=== PATIENT | female | born 1930 | race Caucasian/White ===

== ENCOUNTER 2016-06-25 01:48 | Inpatient (IN) | payer MEDICARE, BC ==
[2016-06-25] MEDS ORDERED: MORPHINE SULFATE 4 MG/ML SYRINGE IVP PRN (02:02)
[2016-06-25] MEDS ORDERED: PANTOPRAZOLE 40 MG/10 ML VIAL IVP STA (02:02)
[2016-06-25] MEDS ORDERED: ONDANSETRON 4 MG/2 ML VIAL IVP PRN (02:02)
--- NOTE | 2016-06-25 02:04 | ED ---
General Adult HPI - General Chief complaint: Abdominal Pain Stated complaint: Hernia Time Seen by Provider: 06/25/16 01:56 Source: patient, RN notes reviewed, old records reviewed Mode of arrival: EMS Limitations: no limitations - History of Present Illness Initial comments: This is an 86-year-old female who accepted the transfer patient for evaluation of hernia. Hernia abdominal pain. Nausea and vomiting. Patient is a poor strain secondary to dementia. Patient's transfer for surgical evaluation of possible incarcerated hernia at this time patient is pleasant, with no complaints are acute distress - Related Data Home Medications Medication Instructions Recorded Confirmed Aspirin 81 mg PO DAILY 10/06/14 12/11/14 Citalopram Hydrobromide [CeleXA] 20 mg PO DAILY 10/06/14 12/11/14 Lisinopril-Hctz 10-12.5 mg 1 each PO DAILY 10/06/14 12/11/14 [Zestoretic 10-12.5] Pravastatin Sodium [Pravachol] 40 mg PO DAILY 10/06/14 12/11/14 Zoledronic Acid 5Mg/100Ml Pmx 1 dose IVPB DIRECTED 10/06/14 12/11/14 [Reclast] ALPRAZolam [Xanax] 0.25 mg PO BID PRN 10/12/14 12/11/14 Calcium Carbonate [Calcium] 1,200 mg PO DAILY 10/12/14 12/11/14 Cholecalciferol [Vitamin D3] 5,000 unit PO DAILY 10/12/14 12/11/14 Cranberry Conc/C/Bacill Coag 1 each PO DAILY 10/12/14 12/11/14 [Cranberry Tablet] L.acidoph/B.long/L.plant/B.lac 1 each PO DAILY 10/12/14 12/11/14 [Probiotic Acidophilus Beads] Multivitamins, Thera [Multivitamin] 1 each PO DAILY@1200 10/12/14 12/11/14 Naproxen Sodium [Aleve] 220 mg PO Q12HR PRN 10/12/14 12/11/14 Omeprazole [PriLOSEC] 20 mg PO AC-BRKFST 10/12/14 12/11/14 Albuterol Inhaler [Ventolin 1 - 2 puff INHALATION BID 10/23/14 12/11/14 Inhaler] Ferrous Sulfate [Iron (65 MG 45 mg PO DAILY 10/30/14 12/11/14 Elemental)] Cyanocobalamin [Vitamin B-12] 500 mcg PO DAILY@1200 12/11/14 12/11/14 Allergies Allergy/AdvReac Type Severity Reaction Status Date / Time No Known Allergies Allergy Verified 06/25/16 02:01 Review of Systems ROS Statement: Those systems with pertinent positive or pertinent negative responses have been documented in the HPI. ROS Other: All systems not noted in ROS Statement are negative. Past Medical History Past Medical History: COPD, Dementia, GERD/Reflux, Hyperlipidemia, Hypertension , Memory Impairment, Vascular Disorder Additional Past Medical History / Comment(s): "poor circulation lower legs", anemia, osteoporosis, seasonal allergies History of Any Multi-Drug Resistant Organisms: None Reported Past Surgical History: Hysterectomy Additional Past Surgical History / Comment(s): double aortic aneurysm repair, eye surgery- bilateral cataracts, and glaucoma surgery Past Anesthesia/Blood Transfusion Reactions: No Reported Reaction Past Psychological History: Depression Additional Psychological History / Comment(s): Alzheimers Smoking Status: Former smoker Past Alcohol Use History: None Reported Past Drug Use History: None Reported - Past Family History Mother Family Medical History: No Reported History General Exam Limitations: no limitations General appearance: alert, in no apparent distress Head exam: Present: atraumatic, normocephalic, normal inspection Eye exam: Present: normal appearance, PERRL, EOMI. Absent: scleral icterus, conjunctival injection, periorbital swelling ENT exam: Present: normal exam, mucous membranes moist Neck exam: Present: normal inspection. Absent: tenderness, meningismus, lymphadenopathy Respiratory exam: Present: normal lung sounds bilaterally. Absent: respiratory distress, wheezes, rales, rhonchi, stridor Cardiovascular Exam: Present: regular rate, normal rhythm, normal heart sounds. Absent: systolic murmur, diastolic murmur, rubs, gallop, clicks GI/Abdominal exam: Present: soft, normal bowel sounds. Absent: distended, tenderness, guarding, rebound, rigid Extremities exam: Present: normal inspection, full ROM, normal capillary refill. Absent: tenderness, pedal edema, joint swelling, calf tenderness Back exam: Present: normal inspection Neurological exam: Present: alert, oriented X3, CN II-XII intact Psychiatric exam: Present: normal affect, normal mood Skin exam: Present: warm, dry, intact, normal color. Absent: rash Course Vital Signs 06/25/16 01:51 Temperature 97.1 F L Pulse Rate 66 Respiratory 16 Rate Blood Pressure 182/93 O2 Sat by Pulse 96 Oximetry - Reevaluation(s) Reevaluation #1: 06/25/16 02:03 Unable to reduce hernia Reevaluation #2: 06/25/16 02:03 General surgery on-call, Dr. Antonia odonnell Medical Decision Making - Medical Decision Making 86 female the ER for evaluation. This patient possessed yesterday for evaluation of hernia, patient does have incarcerated hernia, [place] for surgical evaluation and treatment - Radiology Data Radiology results: report reviewed (CT report reviewed, positive hernia) Disposition Clinical Impression: Abdominal pain, Incarcerated hernia Disposition: ADMITTED IP TO THIS [facility] Condition: Fair Referrals: Nonstaff,Physician [Primary Care Provider] - 1-2 days
[2016-06-25] MEDS ORDERED: LABETALOL SYRINGE 5 MG/ML IVP STA (03:06)
[2016-06-25] MEDS ORDERED: SODIUM CHLORIDE 0.9% 1,000 ML IV SCH (03:30)
[2016-06-25 03:58] VITALS: BMI 25.9
--- NOTE | 2016-06-25 08:58 | P.GSHP ---
History of Present Illness H&P Date: 06/25/16 Chief Complaint: Hernia The patient is an 86-year-old female that's had a hernia for sometime. This 3 or 4 days it's been swollen and somewhat sore. Denies any previous repair. Denies nausea or vomiting. It is not bothering her much today. - Review of Systems All systems: negative (Some dementia) Past Medical History Past Medical History: COPD, Dementia, GERD/Reflux, Hyperlipidemia, Hypertension , Memory Impairment, Vascular Disorder Additional Past Medical History / Comment(s): "poor circulation lower legs", anemia, osteoporosis, seasonal allergies History of Any Multi-Drug Resistant Organisms: None Reported Past Surgical History: Hysterectomy Additional Past Surgical History / Comment(s): double aortic aneurysm repair, eye surgery- bilateral cataracts, and glaucoma surgery Past Anesthesia/Blood Transfusion Reactions: No Reported Reaction Past Psychological History: Depression Additional Psychological History / Comment(s): Alzheimers Smoking Status: Former smoker Past Alcohol Use History: None Reported Past Drug Use History: None Reported - Past Family History Mother Family Medical History: No Reported History Medications and Allergies Home Medications Medication Instructions Recorded Confirmed Type Citalopram Hydrobromide [CeleXA] 20 mg PO DAILY 06/25/16 06/25/16 History Cyanocobalamin (Vitamin B-12) 2,000 mcg PO DAILY 06/25/16 06/25/16 History [Vitamin B12] Ferrous Sulfate [Feosol] 325 mg PO DAILY 06/25/16 06/25/16 History Lisinopril-Hctz 20-25 mg 1 tab PO DAILY 06/25/16 06/25/16 History [Zestoretic 20-25] Loratadine [Claritin] 10 mg PO DAILY 06/25/16 06/25/16 History Multivitamins, Thera [Multivitamin] 1 tab PO DAILY 06/25/16 06/25/16 History [place]-3 Fatty Acids/Fish Oil [Fish 1 cap PO DAILY 06/25/16 06/25/16 History Oil 1,000 mg Softgel] Omeprazole [PriLOSEC] 40 mg PO DAILY 06/25/16 06/25/16 History Pravastatin Sodium [Pravachol] 40 mg PO HS 06/25/16 06/25/16 History Allergies Allergy/AdvReac Type Severity Reaction Status Date / Time No Known Allergies Allergy Verified 06/25/16 02:01 Surgical - Exam Osteopathic Statement: *. No significant issues noted on an osteopathic structural exam other than those noted in the History and Physical/Consult. Vital Signs Temp Pulse Resp BP Pulse Ox 97.1 F L 66 16 182/93 96 06/25/16 01:51 06/25/16 01:51 06/25/16 01:51 06/25/16 01:51 06/25/16 01:51 - General Age-appropriate well developed, well nourished, no distress - Eyes normal ocular movement - ENT normal mucosa, no hearing loss - Neck trachea midline - Respiratory normal respiratory effort, clear to auscultation - Cardiovascular Rhythm: regular - Abdomen Abdomen: soft, non tender, bowel sounds, masses (Fullness on the right inguinal canal with a hernia that does reduce. To palpation there was bowel wall contents present which were reduced) Hernia: inguinal, reducible - Psychiatric oriented to person, oriented to place, speech is normal Results - Imaging CT scan - abdomen: report reviewed Assessment and Plan (1) Right inguinal hernia Status: Acute (2) Dementia Status: Acute Plan: Plan as right inguinal herniorrhaphy with mesh. Procedures and complications were discussed. We'll arrange this for her today.
[2016-06-25 10:12] LABS: INR 1.1 (<1.1); Partial Thromboplastin Time 25.6 sec (22.0-30.0); Prothrombin Time 10.8 sec (9.0-12.0)
[2016-06-25] MEDS ORDERED: HYDROmorphone 1 MG/ML 1 ML SYRINGE IVP PRN (12:02)
[2016-06-25] MEDS ORDERED: LACTATED RINGERS 1,000 ML IV SCH (12:15)
[2016-06-25] MEDS ORDERED: LIDOCAINE 1% INJ 10MG/ML (20 ML MDV) ONE (13:58)
[2016-06-25] MEDS ORDERED: PROPOFOL 10 MG/ML 20 ML VIAL IV ONE (13:58)
[2016-06-25] MEDS ORDERED: fentaNYL (PF) 50 MCG/ML 2 ML AMP ONE (13:58)
[2016-06-25] MEDS ORDERED: BUPIVACAIN-EPI 0.25%-1:200,000 30 ML VIAL SQ ONE (13:58)
[2016-06-25] MEDS ORDERED: LACTATED RINGERS 1,000 ML IV ONE (13:58)
[2016-06-25] MEDS ORDERED: ePHEDrine 50 MG/ML 1 ML AMP ONE (13:58)
[2016-06-25] MEDS ORDERED: NALOXONE 0.4 MG/ML 1 ML VIAL IV PRN (14:41)
[2016-06-25] MEDS ORDERED: traMADol 50 MG TAB PO PRN (14:41)
--- NOTE | 2016-06-25 14:50 | P.OP ---
Date of Procedure: 06/25/16 Preoperative Diagnosis: Right inguinal hernia Postoperative Diagnosis: Right indirect inguinal hernia Procedure(s) Performed: Right inguinal herniorrhaphy with mesh Anesthesia: ERON Surgeon: Halley Donaldson Estimated Blood Loss (ml): 2 Pathology: none sent Condition: stable Disposition: PACU Indications for Procedure: The patient presented with an incarcerated hernia and discomfort for 3-4 days. She was seen this morning in the hernia was easily reduced. Operative Findings: The patient has a moderately large indirect hernia sac which is dissected free. No significant direct fascial defect or femoral hernia Description of Procedure: The patient's taken the operative suite and prepped and draped in the usual sterile manner under a general anesthetic. The ASIS and pubic tubercle were identified. Surprise between those 2 points a 3 cm incision was made. The subcutaneous tissues were bluntly divided. The external oblique fascia was opened along the direction of its fibers. The internal oblique was bluntly opened along the direction of its fibers and the transversalis fascia was opened vertically. The indirect hernia sac is dissected free. The round ligament is identified. Its clamped cut and tied with 0 Vicryl suture. The preperitoneal space was then bluntly developed. Once adequate space was developed small oval patch was placed in the area and deployed. It gave good coverage of all potential hernia defect areas. The mesh was tacked to the fascia medially using a spiral tacker. The transversalis fascia was then closed with 0 Vicryl taking bites of the mesh to secure it in place. The internal oblique was allowed to fall back together and the external oblique was closed with 0 Vicryl. Skin incision was closed with 4-0 Vicryl in a subcuticular manner. Steri-Strips and dressings were applied. She tolerated the procedure without difficulty and was taken recovery room in satisfactory condition. According to or personnel all counts were correct. Plan - Discharge Summary New Discharge Prescriptions: traMADol HCL [Ultram] 50 - 100 mg PO Q4HR PRN #30 tab PRN Reason: Pain Discharge Medication List Cholecalciferol [Vitamin D3] 2,000 unit PO DAILY 06/25/16 [History] Citalopram Hydrobromide [CeleXA] 20 mg PO DAILY 06/25/16 [History] Ferrous Sulfate [Feosol] 325 mg PO DAILY 06/25/16 [History] Lisinopril-Hctz 20-25 mg [Zestoretic 20-25] 1 tab PO DAILY 06/25/16 [History] Loratadine [Claritin] 10 mg PO DAILY 06/25/16 [History] Multivitamins, Thera [Multivitamin] 1 tab PO DAILY 06/25/16 [History] [place]-3 Fatty Acids/Fish Oil [Fish Oil 1,000 mg Softgel] 1 cap PO DAILY [History] Omeprazole [PriLOSEC] 40 mg PO DAILY 06/25/16 [History] Pravastatin Sodium [Pravachol] 40 mg PO HS 06/25/16 [History] traMADol HCL [Ultram] 50 - 100 mg PO Q4HR PRN #30 tab 06/25/16 [Rx] Follow up Appointment(s)/Referral(s): Nonstaff,Physician [Primary Care Provider] - 1-2 days Halley Donaldson DO [Doctor of Osteopathic Medicine] - 2 Weeks Activity/Diet/Wound Care/Special Instructions: Keep the current dressing on until Sunday. It may then be removed and the patient may shower. No tub baths for 1 week. Remove the Steri-Strips (little tapes) in 1 week. Expect some bruising and swelling under the incision. Call if fevers, chills, concerns of wound infection, or other complaints. Activity as tolerated. Discharge Disposition: HOME SELF-CARE
[2016-06-25 16:19] VITALS: RESP 16; TEMP 98
[2016-06-25 16:20] VITALS: PULSE 76
[2016-06-25 16:21] VITALS: BP 160/75
[2016-06-26] MEDS ORDERED: PANTOPRAZOLE 40 MG/10 ML VIAL IVP SCH (09:00)
--- NOTE | 2016-07-14 21:18 | DS ---
DATE OF ADMISSION: 06/25/2016 DATE OF DISCHARGE: 06/25/2016 She came in for outpatient herniorrhaphy and the discharge summary is on the computer with the operative note.
== END 2016-06-25 18:33 | disposition home or self-care (01) | DRG 352 ==
LOC: EC 01:48 → SUPCPDRO 01:48 → 5MS5E 02:01
PROVIDERS: ADMIT Surgery; ATTEND Surgery
PROC: 0YU50JZ Supplement Right Inguinal Region with Synthetic Substitute, Open Approach (ICD-10-PCS; principal; 2016-06-25 11:28)
DX: K40.90 Unilateral inguinal hernia, without obstruction or gangrene, not specified as recurrent (principal); J44.9 Chronic obstructive pulmonary disease, unspecified; F02.80 Dementia in other diseases classified elsewhere, unspecified severity, without behavioral disturbance, psychotic disturbance, mood disturbance, and anxiety; G30.9 Alzheimer's disease, unspecified; K21.9 Gastro-esophageal reflux disease without esophagitis; E78.5 Hyperlipidemia, unspecified; I10 Essential (primary) hypertension; R41.3 Other amnesia; F32.9 Major depressive disorder, single episode, unspecified; Z79.899 Other long term (current) drug therapy; Z87.891 Personal history of nicotine dependence; Z79.82 Long term (current) use of aspirin
CPT/HCPCS: 85610; 85730; 96374; 96375; 99285